=== PATIENT | female | born 1945 | race Caucasian/White ===

== ENCOUNTER → 2017-03-03 | Outpatient (CLI) | payer OTHER ==
[~2017-03-03] VITALS: Ht 162.6 cm; Wt 149.7 kg
[~2017-03-03] MED LIST: AMLODIPINE BESY10 MG PO; COMBIGAN O20 DROP/5 BOTH EYES; HYGROTON25 MG PO; TRIAMTERENE/HC1 EACH PO
== END | disposition home or self-care (01) ==
LOC: AMB 10:53
PROC: 0DBM8ZX Excision of Descending Colon, Via Natural or Artificial Opening Endoscopic, Diagnostic (ICD-10-PCS; principal; 2017-03-03)
DX: Z12.11 Encounter for screening for malignant neoplasm of colon (principal); D12.4 Benign neoplasm of descending colon; Z80.0 Family history of malignant neoplasm of digestive organs; K64.8 Other hemorrhoids; K57.30 Diverticulosis of large intestine without perforation or abscess without bleeding; I10 Essential (primary) hypertension
CPT/HCPCS: 88305; 93005